=== PATIENT | male | born 1945 | race Two or more races ===

== ENCOUNTER 2021-08-04 15:36 | Inpatient (IN) | payer OTHER ==
[~2021-08-04] VITALS: Ht 165.1 cm; Wt 95.4 kg
[2021-08-04 16:40] LABS: Albumin 3.3 g/dL (3.4-5.0); BUN/Creatinine Ratio 10.9; Calcium 8.8 mg/dL (8.5-10.1); Potassium 3.8 mmol/L (3.5-5.1)
[2021-08-04 16:44] LABS: Bilirubin, Total 0.4 mg/dL (0.2-1.0); Total Protein 7.7 g/dL (6.4-8.2)
[2021-08-04 16:47] LABS: Magnesium 2.6 mg/dL (1.6-2.6)
[2021-08-04] MEDS ORDERED: ASPirin 325 MG TAB PO ONE (17:15)
[2021-08-04 18:00] LABS: Basophils # (auto) 0.1 10 ^3/uL (0-0.2); Basophils % (auto) 1.1 % (0.0-2.0); Eosinophils # (auto) 0 10 ^3/uL (0-0.8); Eosinophils % (auto) 0.2 % (0.0-7.0); Hematocrit 47.8 % (41.0-53.0); Lymphocytes # (auto) 1.7 10 ^3/uL (0.4-5.4); Mean Corpuscular Hemoglobin 30.8 pg (28.0-32.0); Mean Corpuscular Hgb Conc. 33.5 g/dL (32.0-36.0); Mean Corpuscular Volume 92.1 fL (80.0-100.0); Monocytes # (auto) 0.9 10 ^3/uL (0-1.3); Monocytes % (auto) 7.7 % (0.0-12.0); Neutrophils # (auto) 8.6 10 ^3/uL (1.6-8.6); Nucleated Red Blood Cells % 0.1 %; Red Blood Cells 5.19 10^6/uL (4.5-5.90); Red Cell Distribution Width 13.5 % (11.8-14.3); White Blood Cell 11.3 10^3/uL (4.4-10.8)
[2021-08-04] MEDS ORDERED: ATORVASTATIN 20 MG TAB PO ONE (18:30)
[2021-08-04] MEDS ORDERED: NITROGLYCERIN 50MG/250ML 250 ML IV SCH (18:30)
[2021-08-04] MEDS ORDERED: NITROGLYCERIN 0.4 MG SL TAB SL PRN ×2 (18:30→21:45)
[2021-08-04] MEDS ORDERED: MORPHINE SULFATE INJECTION 2 MG/ML SYRG IV PRN ×2 (18:30→21:45)
[2021-08-04] MEDS ORDERED: HEPARIN DRIP/D5W 100UNITS/ML 250 ML IV SCH (18:30)
[2021-08-04] MEDS ORDERED: HEPARIN SODIUM (PORCINE) 5000 UNITS/ML 1ML VIAL IV ONE (18:30)
[2021-08-04] MEDS ORDERED: traMADol HCL 50 MG TAB PO PRN (19:00)
[2021-08-04] MEDS ORDERED: LACTULOSE 20Gm/30ML SOLN PO PRN (19:00)
[2021-08-04] MEDS ORDERED: TEMAZEPAM 15 MG CAP PO PRN (19:00)
[2021-08-04] MEDS ORDERED: ACETAMINOPHEN 500 MG TAB PO PRN (19:00)
[2021-08-04] MEDS ORDERED: DEXTROSE (50%) 50ML SYRG IV PRN (19:00)
[2021-08-04] MEDS ORDERED: ONDANSETRON HCL 4 MG/2 ML VIAL IV PRN ×2 (19:00→21:45)
[2021-08-04 19:06] LABS: INR 0.94 (0.9-1.15); Partial Thromboplastin Time 30.7 sec (23.6-33.0)
[2021-08-04] MEDS ORDERED: LIDOCAINE 2%HCL (LOCAL ANESTH.) INJ 20ML MDV ONE (19:14)
[2021-08-04] MEDS ORDERED: ANGIOMAX 250 MG VIAL IV ONE (19:14)
[2021-08-04] MEDS ORDERED: fentaNYL CITRATE 100 MCG/2 ML VL ONE (19:14)
[2021-08-04] MEDS ORDERED: MIDAZOLAM HCL 2MG/2ML 2ml VIAL (1mg/ml) ONE ×2 (19:14→20:39)
[2021-08-04] MEDS ORDERED: SODIUM CHL 0.9% 50 ML ONE (19:16)
[2021-08-04] MEDS ORDERED: IODIXANOL 320MG/ML 100ML BTL IV ONE ×2 (19:55→20:04)
[2021-08-04] MEDS ORDERED: TICAGRELOR 90 MG TAB ONE (20:03)
[2021-08-04] MEDS ORDERED: ATROPINE SULF 1 MG/10ml SYR ONE (20:12)
[2021-08-04] MEDS ORDERED: niCARdipine 25 MG/10 ML VIAL IV ONE ×2 (20:19→20:31)
[2021-08-04] MEDS ORDERED: METOPROLOL TARTRATE 1MG/1ML-5ML VIAL IV ONE (20:43)
[2021-08-04] MEDS ORDERED: LABETALOL HCL 5 MG/ML 4ML SYRINGE IV PRN (21:45)
[2021-08-04] MEDS ORDERED: SOD CHL 0.45% 1,000 ML IV ONE (21:45)
[2021-08-04] MEDS ORDERED: HYDROcodone-ACET 5/325MG TAB PO PRN (21:45)
[2021-08-04] MEDS ORDERED: hydrALAZINE HCL 20 MG/ML VL IV PRN (21:45)
[2021-08-04] MEDS: TICAGRELOR 90 MG TAB PO SCH (22:00)
[2021-08-04] MEDS: ACCU-CHEK COMFORT CURVE STRIP VI SCH (22:00)
[2021-08-04] MEDS: METOPROLOL TARTRATE 25 MG TAB PO SCH (22:38)
[2021-08-04] MEDS: InsuLIN REG 1unit/0.01ml Soln (100units/ml) SC SCH (22:39)
[2021-08-04 23:58] VITALS: BP 135/89
[2021-08-05] MEDS ORDERED: DIVA250T12 PO (00:22)
[2021-08-05] MEDS ORDERED: DONE1TAB88 PO (00:22)
[2021-08-05] MEDS ORDERED: ESCI-34 PO (00:22)
[2021-08-05] MEDS ORDERED: HALOPERIDOL LACTATE 5 MG/ML INJ VIAL IM ONE (02:15)
[2021-08-05 05:00] VITALS: BP 118/65
[2021-08-05 05:38] LABS: Basophils # (auto) 0.1 10 ^3/uL (0-0.2); Basophils % (auto) 1.2 % (0.0-2.0); Eosinophils # (auto) 0 10 ^3/uL (0-0.8); Eosinophils % (auto) 0.3 % (0.0-7.0); Hematocrit 44.9 % (41.0-53.0); Lymphocytes # (auto) 1.5 10 ^3/uL (0.4-5.4); Lymphocytes % (auto) 13.4 % (10.0-50.0); Mean Corpuscular Hemoglobin 30.8 pg (28.0-32.0); Mean Corpuscular Hgb Conc. 33.4 g/dL (32.0-36.0); Mean Corpuscular Volume 92.1 fL (80.0-100.0); Monocytes % (auto) 8.9 % (0.0-12.0); Neutrophils # (auto) 8.5 10 ^3/uL (1.6-8.6); Neutrophils % (auto) 76.2 % (37.0-80.0); Red Blood Cells 4.88 10^6/uL (4.5-5.90); Red Cell Distribution Width 13.6 % (11.8-14.3); White Blood Cell 11.1 10^3/uL (4.4-10.8)
[2021-08-05 05:58] LABS: Potassium 4.3 mmol/L (3.5-5.1)
[2021-08-05] MEDS: ACCU-CHEK COMFORT CURVE STRIP VI SCH ×4 (06:00→22:44)
[2021-08-05] MEDS: InsuLIN REG 1unit/0.01ml Soln (100units/ml) SC SCH ×4 (06:00→22:00)
[2021-08-05 06:27] LABS: BUN/Creatinine Ratio 11.5; Bilirubin, Total 0.8 mg/dL (0.2-1.0); Calcium 8.6 mg/dL (8.5-10.1); Total Protein 7.2 g/dL (6.4-8.2)
[2021-08-05] MEDS: ASPirin 81 mg TAB PO SCH (09:57)
[2021-08-05] MEDS: PANTOPRAZOLE 40 MG TAB PO SCH (10:01)
[2021-08-05] MEDS: METOPROLOL TARTRATE 25 MG TAB PO SCH ×2 (10:03→22:45)
[2021-08-05] MEDS: TICAGRELOR 90 MG TAB PO SCH ×2 (10:04→22:44)
[2021-08-05] MEDS: ENALAPRIL MALEATE 2.5 MG TAB PO SCH (10:07)
[2021-08-05 13:00] VITALS: BP 113/76
[2021-08-05 13:53] LABS: Urine WBC None Seen /hpf (0 - 3)
[2021-08-05] MEDS ORDERED: ENAL2.5T7 PO (13:54)
[2021-08-05] MEDS ORDERED: ATOR20TA50 PO (13:54)
[2021-08-05 14:44] LABS: Urine Bacteria NONE SEEN /hpf (None Seen); Urine Blood Negative /uL (Negative); Urine Specific Gravity 1.015 (1.001-1.035)
[2021-08-05 18:13] VITALS: BP 126/78
[2021-08-05 21:42] VITALS: BP 117/51
[2021-08-05] MEDS ORDERED: ATORVASTATIN 20 MG TAB PO SCH (22:00)
[2021-08-06 05:00] VITALS: BP 118/60
[2021-08-06] MEDS: ACCU-CHEK COMFORT CURVE STRIP VI SCH ×2 (06:01→11:35)
[2021-08-06] MEDS: InsuLIN REG 1unit/0.01ml Soln (100units/ml) SC SCH ×2 (06:01→11:30)
[2021-08-06 06:31] LABS: Basophils # (auto) 0.1 10 ^3/uL (0-0.2); Basophils % (auto) 0.7 % (0.0-2.0); Eosinophils # (auto) 0.1 10 ^3/uL (0-0.8); Eosinophils % (auto) 0.8 % (0.0-7.0); Hematocrit 39.4 % (41.0-53.0); Hemoglobin 13.8 g/dL (13.5-17.5); Lymphocytes # (auto) 1.3 10 ^3/uL (0.4-5.4); Lymphocytes % (auto) 14.3 % (10.0-50.0); Mean Corpuscular Hemoglobin 32.1 pg (28.0-32.0); Mean Corpuscular Hgb Conc. 35.1 g/dL (32.0-36.0); Mean Corpuscular Volume 91.4 fL (80.0-100.0); Monocytes % (auto) 10.6 % (0.0-12.0); Neutrophils # (auto) 6.8 10 ^3/uL (1.6-8.6); Neutrophils % (auto) 73.6 % (37.0-80.0); Red Blood Cells 4.31 10^6/uL (4.5-5.90); Red Cell Distribution Width 13.3 % (11.8-14.3); White Blood Cell 9.2 10^3/uL (4.4-10.8)
[2021-08-06 06:42] LABS: Potassium 3.4 mmol/L (3.5-5.1)
[2021-08-06 06:45] LABS: INR 0.99 (0.9-1.15); Partial Thromboplastin Time 29.7 sec (23.6-33.0)
[2021-08-06 06:54] LABS: Albumin 2.8 g/dL (3.4-5.0); BUN/Creatinine Ratio 11.4; Bilirubin, Total 1.1 mg/dL (0.2-1.0); Calcium 8.1 mg/dL (8.5-10.1); Magnesium 2.3 mg/dL (1.6-2.6); Phosphorus 2.4 mg/dL (2.5-4.90); Total Protein 6.4 g/dL (6.4-8.2)
[2021-08-06 08:00] VITALS: BP_SYST 116; BP_SYST 152; BP_DIAS 63; BP_DIAS 84
[2021-08-06] MEDS: ASPirin 81 mg TAB PO SCH (09:27)
[2021-08-06] MEDS: TICAGRELOR 90 MG TAB PO SCH (09:27)
[2021-08-06] MEDS: ENALAPRIL MALEATE 2.5 MG TAB PO SCH (09:31)
[2021-08-06] MEDS: METOPROLOL TARTRATE 25 MG TAB PO SCH (09:31)
[2021-08-06] MEDS: PANTOPRAZOLE 40 MG TAB PO SCH (09:32)
[2021-08-06] MEDS ORDERED: ESCITALOPRAM 20MG TABLET PO SCH (10:00)
[2021-08-06 11:53] VITALS: BP 116/63
[2021-08-06] MEDS ORDERED: TICA90TA PO (12:17)
[2021-08-06] MEDS ORDERED: MET25T PO (12:17)
[2021-08-06] MEDS ORDERED: ATO40T PO (12:17)
[2021-08-06] MEDS ORDERED: ASPI-378 PO (12:17)
[2021-08-06] MEDS ORDERED: ENAL2.5T11 PO (12:20)
== END 2021-08-06 14:57 | disposition home or self-care (01) | DRG 246 ==
LOC: ER 15:36 → TELE 18:21 → TELE-CENTR 22:02
PROVIDERS: ADMIT Internal Medicine; ATTEND Internal Medicine
PROC: 4A023N7 Measurement of Cardiac Sampling and Pressure, Left Heart, Percutaneous Approach (ICD-10-PCS; principal; 2021-08-04)
PROC: 02C13ZZ Extirpation of Matter from Coronary Artery, Two Arteries, Percutaneous Approach (ICD-10-PCS; 2021-08-04)
PROC: 027135Z Dilation of Coronary Artery, Two Arteries with Two Drug-eluting Intraluminal Devices, Percutaneous Approach (ICD-10-PCS; 2021-08-04)
PROC: B211YZZ Fluoroscopy of Multiple Coronary Arteries using Other Contrast (ICD-10-PCS; 2021-08-04)
DX: I21.19 ST elevation (STEMI) myocardial infarction involving other coronary artery of inferior wall (principal); I46.9 Cardiac arrest, cause unspecified; I50.33 Acute on chronic diastolic (congestive) heart failure; R65.10 Systemic inflammatory response syndrome (SIRS) of non-infectious origin without acute organ dysfunction; I16.9 Hypertensive crisis, unspecified; E11.9 Type 2 diabetes mellitus without complications; E66.01 Morbid (severe) obesity due to excess calories; E78.5 Hyperlipidemia, unspecified; I11.0 Hypertensive heart disease with heart failure; Z20.822 Contact with and (suspected) exposure to COVID-19; I25.10 Atherosclerotic heart disease of native coronary artery without angina pectoris; Z68.35 Body mass index [BMI] 35.0-35.9, adult; Z88.0 Allergy status to penicillin
CPT/HCPCS: 36415; 71045; 80053; 80061; 81001; 82553; 82962; 83036; 83690; 83735; 83880; 84100; 84443; 84484; 85025; 85610; 85730; 86850; 86900; 86901; 87426; 92928; 92929; 92973; 93005; 93306; 93458; 96360; 96372; 99152; 99153; C1874; G0378; J1815; J2250; Q9967

== ENCOUNTER 2023-02-04 13:49 | Inpatient (IN) | payer OTHER ==
[~2023-02-04] VITALS: Ht 160 cm; Wt 87.5 kg
[~2023-02-04 13:49] MED LIST: ASPI-378 PO; ATO40T PO; DIVA250T12 PO; DONE1TAB88 PO; ESCI-34 PO; TICA90TA PO
[2023-02-04] MEDS ORDERED: PENICILLIN G POTASSIUM 4,000,000 UNITS in D5W 5% 50 ML IV ONE (14:45)
[2023-02-04 15:22] LABS: Basophils # (auto) 0 10 ^3/uL (0-0.2); Basophils % (auto) 0.3 % (0.0-2.0); Eosinophils # (auto) 0.2 10 ^3/uL (0-0.8); Eosinophils % (auto) 1.9 % (0.0-7.0); Hematocrit 42.4 % (41.0-53.0); Hemoglobin 14.4 g/dL (13.5-17.5); Lymphocytes # (auto) 1.3 10 ^3/uL (0.4-5.4); Lymphocytes % (auto) 15.1 % (10.0-50.0); Mean Corpuscular Hemoglobin 31.3 pg (28.0-32.0); Mean Corpuscular Hgb Conc. 33.9 g/dL (32.0-36.0); Mean Corpuscular Volume 92.4 fL (80.0-100.0); Monocytes # (auto) 0.6 10 ^3/uL (0-1.3); Monocytes % (auto) 7.3 % (0.0-12.0); Neutrophils # (auto) 6.6 10 ^3/uL (1.6-8.6); Neutrophils % (auto) 75.4 % (37.0-80.0); Nucleated Red Blood Cells % 0.1 %; Red Blood Cells 4.59 10^6/uL (4.5-5.90); White Blood Cell 8.8 10^3/uL (4.4-10.8)
[2023-02-04 15:43] LABS: INR 0.89 (0.9-1.15); Partial Thromboplastin Time 30.5 sec (24.6-33.4)
[2023-02-04 15:44] LABS: Albumin 3.1 g/dL (3.4-5.0); Calcium 8.5 mg/dL (8.5-10.1); Potassium 3.7 mmol/L (3.5-5.1)
[2023-02-04 15:48] LABS: BUN/Creatinine Ratio 14.5 (10.0-20.0); Bilirubin, Total 0.4 mg/dL (0.2-1.0); Total Protein 7.2 g/dL (6.4-8.2)
[2023-02-04] MEDS ORDERED: diphenhdrAMINE HCL 50 MG/1 ML VL IV ONE (16:30)
[2023-02-04] MEDS ORDERED: ACETAMINOPHEN 325 MG TAB PO PRN (17:30)
[2023-02-04] MEDS ORDERED: SODIUM CHLORIDE 0.9% 1,000 ML IV SCH (17:30)
[2023-02-04] MEDS ORDERED: MORPHINE SULFATE INJ 2 MG/ml SYRG IV PRN ×2 (18:45→19:15)
[2023-02-04] MEDS ORDERED: NITROGLYCERIN 0.4 MG SL TAB SL PRN (18:45)
[2023-02-04 18:56] LABS: Cholesterol 156 mg/dL (< 200)
[2023-02-04 18:59] LABS: HDL Cholesterol 37 mg/dL (40-59); LDL Cholesterol 96 mg/dL (< 100); Triglycerides 353 mg/dL (< 150)
[2023-02-04] MEDS ORDERED: SOD CHL 0.45% 1,000 ML IV ONE (19:15)
[2023-02-04 19:24] LABS: Urine Bacteria NONE SEEN /hpf (None Seen); Urine Blood Negative /uL (Negative); Urine Specific Gravity 1.011 (1.001-1.035); Urine WBC <1 /hpf (0 - 3)
[2023-02-04] MEDS ORDERED: ATORVASTATIN 20 MG TAB PO SCH (22:00)
[2023-02-04] MEDS ORDERED: TICAGRELOR 90 MG TAB PO SCH (22:00)
[2023-02-05] MEDS ORDERED: ASPirin-EC 81 mg tab PO SCH (10:00)
[2023-02-05] MEDS ORDERED: ENOXAPARIN SOD 40 MG/0.4 ML SYRINGE SC SCH (10:00)
[2023-02-05] MEDS: CITALOPRAM HYDROBR 20 MG TAB PO SCH (10:43)
[2023-02-05] MEDS: ATORVASTATIN 20 MG TAB PO SCH (17:58)
[2023-02-06 08:07] LABS: Basophils # (auto) 0.1 10 ^3/uL (0-0.2); Basophils % (auto) 1.3 % (0.0-2.0); Eosinophils # (auto) 0.2 10 ^3/uL (0-0.8); Eosinophils % (auto) 2.3 % (0.0-7.0); Hematocrit 41.3 % (41.0-53.0); Hemoglobin 14.3 g/dL (13.5-17.5); Lymphocytes # (auto) 2.6 10 ^3/uL (0.4-5.4); Lymphocytes % (auto) 31.1 % (10.0-50.0); Mean Corpuscular Hgb Conc. 34.7 g/dL (32.0-36.0); Mean Corpuscular Volume 92.2 fL (80.0-100.0); Monocytes # (auto) 0.7 10 ^3/uL (0-1.3); Monocytes % (auto) 8.2 % (0.0-12.0); Neutrophils # (auto) 4.7 10 ^3/uL (1.6-8.6); Neutrophils % (auto) 57.1 % (37.0-80.0); Red Blood Cells 4.48 10^6/uL (4.5-5.90); Red Cell Distribution Width 13.5 % (11.8-14.3); White Blood Cell 8.3 10^3/uL (4.4-10.8)
[2023-02-06 08:23] LABS: Albumin 3.2 g/dL (3.4-5.0); BUN/Creatinine Ratio 13.5 (10.0-20.0); Calcium 9.2 mg/dL (8.5-10.1); Potassium 3.6 mmol/L (3.5-5.1)
[2023-02-06 08:26] LABS: Bilirubin, Total 0.8 mg/dL (0.2-1.0); Total Protein 7.6 g/dL (6.4-8.2)
[2023-02-06 09:00] VITALS: BP 169/70
[2023-02-06] MEDS ORDERED: TICAGRELOR 90 MG TAB PO SCH (09:00)
[2023-02-06 09:04] LABS: Folate (Folic Acid) 11.44 ng/mL (5.38-24)
[2023-02-06] MEDS: CITALOPRAM HYDROBR 20 MG TAB PO SCH (09:50)
[2023-02-06] MEDS: ATORVASTATIN 20 MG TAB PO SCH (09:50)
[2023-02-06] MEDS ORDERED: ESCI20TA PO (11:11)
[2023-02-06] MEDS ORDERED: ENAL2.5T7 PO (11:15)
[2023-02-06] MEDS ORDERED: CHOL20007 OR (11:15)
[2023-02-06] MEDS ORDERED: MEMA1TAB5 PO (11:16)
[2023-02-06] MEDS ORDERED: DOXY150C2 PO (11:17)
[2023-02-06 13:00] VITALS: BP 150/81
[2023-02-06] MEDS: CYANOCOBALAMIN (B-12) 1000 MCG/1 ML VIAL IM SCH (15:19)
[2023-02-06] MEDS ORDERED: VALSARTAN 80 MG TAB PO ONE (16:00)
[2023-02-06 17:00] VITALS: BP 157/83
[2023-02-06] MEDS: ASPirin-EC 81 mg tab PO SCH (18:13)
[2023-02-06 22:00] VITALS: BP 167/81
[2023-02-06] MEDS: PENICILLIN G POTASSIUM 4,000,000 UNITS in D5W 5% 50 ML IV SCH (23:11)
[2023-02-06] MEDS: diphenhdrAMINE HCL 50 MG/1 ML VL IV PRN (23:12)
[2023-02-07] MEDS: PENICILLIN G POTASSIUM 4,000,000 UNITS in D5W 5% 50 ML IV SCH ×6 (02:55→22:08)
[2023-02-07] MEDS: diphenhdrAMINE HCL 50 MG/1 ML VL IV PRN ×4 (03:02→22:09)
[2023-02-07 05:00] VITALS: BP 147/82
[2023-02-07 09:30] VITALS: BP 176/85
[2023-02-07] MEDS: CITALOPRAM HYDROBR 20 MG TAB PO SCH (10:54)
[2023-02-07] MEDS: VALSARTAN 80 MG TAB PO SCH (10:54)
[2023-02-07] MEDS: CYANOCOBALAMIN (B-12) 1000 MCG/1 ML VIAL IM SCH (10:56)
[2023-02-07 12:30] VITALS: BP 155/82
[2023-02-07 16:30] VITALS: BP 144/75
[2023-02-07] MEDS: ASPirin-EC 81 mg tab PO SCH (16:50)
[2023-02-07] MEDS: ATORVASTATIN 20 MG TAB PO SCH (16:50)
[2023-02-07 22:00] VITALS: BP 161/79
[2023-02-08] MEDS: PENICILLIN G POTASSIUM 4,000,000 UNITS in D5W 5% 50 ML IV SCH ×6 (02:37→22:08)
[2023-02-08 05:00] VITALS: BP 145/60
[2023-02-08 09:00] VITALS: BP 147/80
[2023-02-08] MEDS: TICAGRELOR 90 MG TAB PO SCH ×3 (09:00→22:00)
[2023-02-08] MEDS: CYANOCOBALAMIN (B-12) 1000 MCG/1 ML VIAL IM SCH (10:42)
[2023-02-08] MEDS: CITALOPRAM HYDROBR 20 MG TAB PO SCH (10:43)
[2023-02-08] MEDS: VALSARTAN 80 MG TAB PO SCH (10:43)
[2023-02-08 13:00] VITALS: BP 132/66
[2023-02-08 16:27] VITALS: BP 158/75
[2023-02-08] MEDS: ASPirin-EC 81 mg tab PO SCH (17:25)
[2023-02-08] MEDS: ATORVASTATIN 20 MG TAB PO SCH (17:25)
[2023-02-08 22:00] VITALS: BP 146/64
[2023-02-09] MEDS: diphenhdrAMINE HCL 50 MG/1 ML VL IV PRN ×4 (02:36→22:36)
[2023-02-09] MEDS: PENICILLIN G POTASSIUM 4,000,000 UNITS in D5W 5% 50 ML IV SCH ×6 (02:37→22:36)
[2023-02-09 05:00] VITALS: BP 155/82
[2023-02-09 08:15] VITALS: BP 154/86
[2023-02-09 08:53] VITALS: BP 154/86
[2023-02-09] MEDS: VALSARTAN 80 MG TAB PO SCH (09:40)
[2023-02-09] MEDS: CITALOPRAM HYDROBR 20 MG TAB PO SCH (09:40)
[2023-02-09] MEDS: TICAGRELOR 90 MG TAB PO SCH ×2 (09:40→22:35)
[2023-02-09] MEDS ORDERED: LIDOCAINE 2%HCL (LOCAL ANESTH.) INJ 10ml MDV ONE (12:02)
[2023-02-09 13:00] VITALS: BP 148/76
[2023-02-09 15:05] LABS: CSF White Blood Cells 3 CUMM (0-5)
[2023-02-09 17:00] VITALS: BP 148/82
[2023-02-09] MEDS: ATORVASTATIN 20 MG TAB PO SCH (17:42)
[2023-02-09] MEDS: ASPirin-EC 81 mg tab PO SCH (17:42)
[2023-02-10] MEDS ORDERED: risperiDONE 1 MG TAB PO ONE (02:00)
[2023-02-10] MEDS: PENICILLIN G POTASSIUM 4,000,000 UNITS in D5W 5% 50 ML IV SCH ×6 (02:09→22:05)
[2023-02-10] MEDS: diphenhdrAMINE HCL 50 MG/1 ML VL IV PRN ×2 (02:46→22:10)
[2023-02-10 05:00] VITALS: BP 138/77
[2023-02-10 06:43] LABS: Basophils # (auto) 0.1 10 ^3/uL (0-0.2); Basophils % (auto) 0.6 % (0.0-2.0); Eosinophils # (auto) 0.1 10 ^3/uL (0-0.8); Eosinophils % (auto) 1.8 % (0.0-7.0); Hematocrit 37.8 % (41.0-53.0); Hemoglobin 13.2 g/dL (13.5-17.5); Lymphocytes # (auto) 1.7 10 ^3/uL (0.4-5.4); Lymphocytes % (auto) 20.2 % (10.0-50.0); Mean Corpuscular Hemoglobin 31.6 pg (28.0-32.0); Mean Corpuscular Hgb Conc. 34.9 g/dL (32.0-36.0); Mean Corpuscular Volume 90.5 fL (80.0-100.0); Monocytes # (auto) 0.8 10 ^3/uL (0-1.3); Monocytes % (auto) 9.3 % (0.0-12.0); Neutrophils # (auto) 5.7 10 ^3/uL (1.6-8.6); Neutrophils % (auto) 68.1 % (37.0-80.0); Nucleated Red Blood Cells % 0.2 %; Red Blood Cells 4.18 10^6/uL (4.5-5.90); Red Cell Distribution Width 13.7 % (11.8-14.3); White Blood Cell 8.3 10^3/uL (4.4-10.8)
[2023-02-10 06:52] LABS: INR 0.95 (0.9-1.15)
[2023-02-10 09:00] VITALS: BP 129/86
[2023-02-10] MEDS: CITALOPRAM HYDROBR 20 MG TAB PO SCH (09:45)
[2023-02-10] MEDS: TICAGRELOR 90 MG TAB PO SCH ×2 (09:46→22:10)
[2023-02-10] MEDS: VALSARTAN 80 MG TAB PO SCH (09:46)
[2023-02-10] MEDS: risperiDONE 1 MG TAB PO SCH ×2 (09:47→22:10)
[2023-02-10] MEDS ORDERED: CYANOCOBALAMIN (B-12) 1000 MCG/1 ML VIAL IM ONE (10:00)
[2023-02-10 13:00] VITALS: BP 133/73
[2023-02-10 16:55] LABS: Glucose, CSF 53 mg/dL (40-70)
[2023-02-10 17:01] VITALS: BP 141/64
[2023-02-10 17:02] LABS: Protein, CSF > 460.0 mg/dL (15-45)
[2023-02-10] MEDS: ATORVASTATIN 20 MG TAB PO SCH (18:24)
[2023-02-10] MEDS: ASPirin-EC 81 mg tab PO SCH (18:24)
[2023-02-10 20:00] VITALS: BP 119/68
[2023-02-10] MEDS ORDERED: TEMAZEPAM 15 MG CAP PO PRN (20:15)
[2023-02-10 23:12] VITALS: BP 119/68
[2023-02-11] LABS: Alanine Aminotransferase 22 U/L (16-61); Albumin 2.9 g/dL (3.4-5.0); Anion Gap 8 (5-15); Aspartate Aminotransferase 21 U/L (15-37); BUN/Creatinine Ratio 15.3 (10.0-20.0); Blood Urea Nitrogen 19 mg/dL (7-18); Calcium 8.6 mg/dL (8.5-10.1); Carbon Dioxide 19 mmol/L (21-32); Chloride 111 mmol/L (98-107); GFR African American 73 mL/min; GFR Non-African American 60 mL/min; Glucose 99 mg/dL (74-106); Sodium 138 mmol/L (136-145)
[2023-02-11 00:02] LABS: Alkaline Phosphatase 72 U/L (45-117); Bilirubin, Total 0.5 mg/dL (0.2-1.0); Total Protein 6.6 g/dL (6.4-8.2)
[2023-02-11] MEDS: diphenhdrAMINE HCL 50 MG/1 ML VL IV PRN (02:04)
[2023-02-11] MEDS: PENICILLIN G POTASSIUM 4,000,000 UNITS in D5W 5% 50 ML IV SCH ×3 (02:08→09:57)
[2023-02-11 05:03] VITALS: BP 128/86
[2023-02-11 05:26] VITALS: BP 128/86
[2023-02-11 08:41] VITALS: BP 112/63
[2023-02-11] MEDS: CITALOPRAM HYDROBR 20 MG TAB PO SCH (10:00)
[2023-02-11] MEDS: VALSARTAN 80 MG TAB PO SCH (10:00)
[2023-02-11] MEDS: risperiDONE 1 MG TAB PO SCH (10:00)
[2023-02-11] MEDS: TICAGRELOR 90 MG TAB PO SCH (10:00)
== END 2023-02-11 11:10 | disposition home health service (06) | DRG 56 ==
LOC: ER 13:49 → OVERFLOW 17:32 → CENTRAL 02-06 05:26 → EAST 02-09 19:40
PROVIDERS: ADMIT Nurse Practitioner Family; ATTEND Internal Medicine Infectious Disease
PROC: 05HA33Z Insertion of Infusion Device into Left Brachial Vein, Percutaneous Approach (ICD-10-PCS; 2023-02-07)
PROC: 00JU3ZZ Inspection of Spinal Canal, Percutaneous Approach (ICD-10-PCS; principal; 2023-02-08)
PROC: 009U3ZX Drainage of Spinal Canal, Percutaneous Approach, Diagnostic (ICD-10-PCS; 2023-02-09)
PROC: B01B1ZZ Fluoroscopy of Spinal Cord using Low Osmolar Contrast (ICD-10-PCS; 2023-02-09)
PROC: 05HD33Z Insertion of Infusion Device into Right Cephalic Vein, Percutaneous Approach (ICD-10-PCS; 2023-02-09)
DX: A52.3 Neurosyphilis, unspecified (principal); G93.41 Metabolic encephalopathy; I21.4 Non-ST elevation (NSTEMI) myocardial infarction; I10 Essential (primary) hypertension; F02.80 Dementia in other diseases classified elsewhere, unspecified severity, without behavioral disturbance, psychotic disturbance, mood disturbance, and anxiety; Z85.05 Personal history of malignant neoplasm of liver; Z87.891 Personal history of nicotine dependence; I25.2 Old myocardial infarction; Z88.0 Allergy status to penicillin; Z79.899 Other long term (current) drug therapy
CPT/HCPCS: 36415; 62272; 70450; 71045; 80053; 80061; 81001; 82607; 82746; 82945; 83036; 84157; 84443; 85025; 85610; 85730; 86592; 86703; 86850; 86900; 86901; 87040; 87070; 87077; 87186; 87205; 89051; 96365; 96375; G0378; J2001; J7060

== ENCOUNTER 2023-02-15 09:32 | Emergency (ER) | payer OTHER ==
[~2023-02-15] VITALS: Ht 160 cm; Wt 85.4 kg
[~2023-02-15 09:32] MED LIST changes: +CHOL20007 OR; +DOXY150C2 PO; +ENAL2.5T7 PO; -ESCI-34 PO; +ESCI20TA PO; +MEMA1TAB5 PO
[2023-02-15 10:25] VITALS: BP 122/68
== END 2023-02-15 12:38 | disposition home or self-care (01) ==
LOC: ER 09:32
DX: I10 Essential (primary) hypertension (principal); I25.2 Old myocardial infarction; Z45.2 Encounter for adjustment and management of vascular access device

== ENCOUNTER 2023-06-26 17:48 | Emergency (ER) | payer OTHER ==
[~2023-06-26] VITALS: Ht 165.1 cm; Wt 86.4 kg
[~2023-06-26 17:48] MED LIST changes: -DOXY150C2 PO; +DOXY150C4 PO; +ENAL1TAB42 PO; -ENAL2.5T7 PO
[2023-06-26 18:04] VITALS: BP 148/88; PULSE 107; RESP 16; TEMP 97.7; O2SAT 99
[2023-06-26] MEDS ORDERED: ACETAMINOPHEN 325 MG TAB PO ONE (19:45)
== END 2023-06-27 00:02 | disposition home or self-care (01) ==
LOC: ER 17:48
DX: S40.022A Contusion of left upper arm, initial encounter (principal); E78.5 Hyperlipidemia, unspecified; I10 Essential (primary) hypertension; W18.39XA Other fall on same level, initial encounter; Y93.89 Activity, other specified; Y92.89 Other specified places as the place of occurrence of the external cause; Y99.8 Other external cause status
CPT/HCPCS: 73030; 73070; 73130

== ENCOUNTER → 2023-10-02 | Outpatient (CLI) | payer OTHER ==
[~2023-10-02] VITALS: Ht 167.6 cm; Wt 83.9 kg
[~2023-10-02] MED LIST changes: +ADENOSINE 70 MG in GIVE UN-DILUTED 0 ML IV ONE
== END | disposition home or self-care (01) ==
LOC: XYW 07:25
PROVIDERS: ATTEND Specialist
DX: I25.9 Chronic ischemic heart disease, unspecified (principal); I10 Essential (primary) hypertension; E78.5 Hyperlipidemia, unspecified; I25.10 Atherosclerotic heart disease of native coronary artery without angina pectoris; F03.90 Unspecified dementia, unspecified severity, without behavioral disturbance, psychotic disturbance, mood disturbance, and anxiety
CPT/HCPCS: 78452; 93017; A9500; J0153